=== PATIENT | female | born 1985 | race Caucasian/White ===

== ENCOUNTER → 2017-06-20 | Outpatient (REF) | payer OTHER ==
[~2017-06-20] MED LIST: NORCOTAB PO
== END ==
LOC: M LAB REF 18:27
PROVIDERS: ATTEND Obstetrics & Gynecology
DX: Z12.4 Encounter for screening for malignant neoplasm of cervix (principal)

== ENCOUNTER → 2017-08-17 | Outpatient (CLI) | payer OTHER ==
--- NOTE | 2017-08-18 14:28 | REP ---
Clinical: Pelvic pain . Technique: Transabdominal pelvic ultrasound followed by transvaginal examination for better evaluation of the endometrium and adnexa with color Doppler evaluation of the ovaries. Findings: Bladder is collapsed. Normal anteverted uterus measures 8.8 x 3.5 x 3.9 cm . The endometrial complex measures 3.1 mm thickness. No discrete uterine or endometrial abnormalities are appreciated. Right ovary is normal in appearance and vascularity without evidence for torsion. Right ovary measures 3.0 x 2.7 x 4.0 cm ; R I = 0.66. Left ovary is surgically absent. No pelvic fluid or adnexal mass lesion . Impression: 1. Evidence of prior left oophorectomy. 2. Normal uterus and right ovary. 3. No pelvic fluid or adnexal mass lesion. Signed by Sorin Gama MD 08/18/2017 02:19 P
== END ==
LOC: M RAD 12:08
PROVIDERS: ATTEND Obstetrics & Gynecology
DX: R10.2 Pelvic and perineal pain (principal)

== ENCOUNTER → 2018-02-21 | Outpatient (REF) | payer OTHER ==
[2018-02-21 22:15] LABS: CHLAMYDIA DNA AMPLIFICATION NEGATIVE (NEGATIVE); GC DNA AMPLIFICATION NEGATIVE (NEGATIVE)
== END ==
LOC: M LAB REF 17:06
DX: R10.2 Pelvic and perineal pain (principal)

== ENCOUNTER → 2018-03-02 | Outpatient (CLI) | payer OTHER | LOC: M RAD 13:30 | DX: R10.2 Pelvic and perineal pain (principal) | CPT/HCPCS: 76856 ==

== ENCOUNTER → 2020-09-04 | Outpatient (REF) | payer OTHER ==
[~2020-09-04] MED LIST changes: +HYDR-3715 PO; -NORCOTAB PO
== END ==
LOC: M LAB REF 13:05
PROVIDERS: ATTEND Physician Assistant
DX: L72.9 Follicular cyst of the skin and subcutaneous tissue, unspecified (principal)

== ENCOUNTER → 2020-09-21 | Outpatient (CLI) | payer OTHER ==
[~2020-09-21] MED LIST changes: +DOXY100T PO; +TRAZ-189 PO
== END ==
LOC: M LABSMTC 08:05
PROVIDERS: ATTEND Anesthesiology
DX: Z01.812 Encounter for preprocedural laboratory examination (principal); Z20.828 Contact with and (suspected) exposure to other viral communicable diseases

== ENCOUNTER 2020-09-26 06:01 | Day surgery (SDC) | payer OTHER ==
[~2020-09-26] VITALS: Ht 12.7 cm; Wt 3.6 kg
[~2020-09-26 06:01] MED LIST changes: +LIDOCAINE 1% MDV 20ML VIAL SQ PRN
[2020-09-26] MEDS ORDERED: LIDOCAINE 1% SDV 30ML VIAL As Ordered ONE (06:50)
[2020-09-26] MEDS ORDERED: dexameTHASONE 4 MG/ML 1ML VIAL (J1100 PER 1MG) As Ordered ONE (06:50)
[2020-09-26] MEDS ORDERED: BUPIVACAINE HCL 0.5% 30 ML VIAL As Ordered ONE (06:50)
[2020-09-26] MEDS ORDERED: ceFAZolin SOD 2 GM in IV 1 EA IV ONE (07:00)
[2020-09-26] MEDS ORDERED: LR 1,000 ML IV ONE (07:00)
[2020-09-26] MEDS ORDERED: propofoL 200 MG/20 ML VIAL As Ordered ONE (07:16)
[2020-09-26] MEDS ORDERED: LIDOCAINE 2% 100MG/5ML SDV (FOR ANES.) As Ordered ONE (07:16)
[2020-09-26] MEDS ORDERED: ONDANSETRON 4MG/2ML VIAL As Ordered ONE (07:16)
[2020-09-26] MEDS ORDERED: KETOROLAC 60MG 2ML VIAL As Ordered ONE (07:16)
[2020-09-26] MEDS ORDERED: fentaNYL 100 MCG/2 ML INJECTION (J3010) As Ordered ONE (07:17)
[2020-09-26] MEDS ORDERED: MIDAZOLAM INJ 2MG/2ML VIAL (J2250 PER 1MG) As Ordered ONE (07:17)
[2020-09-26] MEDS ORDERED: KETAMINE HCL 200 MG/20 ML VIAL As Ordered ONE (07:45)
[2020-09-26 08:46] VITALS: BP 116/68
--- NOTE | 2020-09-26 11:03 | RO ---
DATE OF OPERATION: 09/26/2020 PREOPERATIVE DIAGNOSIS: Plantar verruca. POSTOPERATIVE DIAGNOSIS: Plantar verruca. PROCEDURE: Left foot wart autoimplantation. ANESTHESIA: Monitored anesthesia care. PREOPERATIVE INJECTION: 10 cc of 1:1 mixture of 1% Lidocaine plain and 0.5% Marcaine plain. ESTIMATED BLOOD LOSS: Minimal. MATERIALS: 4-0 nylon. INJECTABLES: None. SPECIMEN: Left foot wart. COMPLICATIONS: None. CONDITION: Stable. Giselle Zavala is a 35-year-old female who presents to [facility] with chronic warts left foot. She has multiple warts which are large and not amenable for surgical excision. The decision was made to bring her for auto- implantation treatment. The patient's side and site were identified and marked in the preholding area. Consent was reviewed and obtained. The risks, complications, and alternatives to the procedure were explained to the patient in detail and all questions were answered. DESCRIPTION OF PROCEDURE: The patient was brought to the operating room and placed on the operating room table in the supine position. Monitored anesthesia care was performed by the anesthesia team. Preop injection of 10 mL of 1:1 mixture of 1% Lidocaine plain and 0.5% Marcaine plain were injected into the left foot. Foot and calf were prepped in normal sterile fashion. Using a 4 mm punch biopsy, a core of tissue of the largest wart was taken. Half of this sample was sectioned and sent for pathology. The other half was implanted through a small stab incision into the calf muscle on the medial side. This incision was repaired with 4-0 nylon. Sterile dressings were applied. The patient was brought to the PACU with vital signs stable and neurovascular status intact. She will be weightbearing as tolerated. She will follow up in the office in two days. FADY
== END 2020-09-26 08:46 | disposition home or self-care (01) ==
LOC: M SDC 06:01
PROVIDERS: ATTEND Podiatrist Foot & Ankle Surgery
DX: B07.0 Plantar wart (principal); F17.218 Nicotine dependence, cigarettes, with other nicotine-induced disorders; F43.10 Post-traumatic stress disorder, unspecified; Z88.5 Allergy status to narcotic agent; Z88.8 Allergy status to other drugs, medicaments and biological substances
CPT/HCPCS: 17110; 28899; 88305; J0690; J1100; J1885; J2250; J2405; J3010

== ENCOUNTER → 2020-12-23 | Outpatient (REF) | payer OTHER ==
[~2020-12-23] MED LIST changes: -LIDOCAINE 1% MDV 20ML VIAL SQ PRN
== END ==
LOC: M LAB REF 11:36
PROVIDERS: ATTEND Podiatrist Foot & Ankle Surgery
DX: B07.0 Plantar wart (principal)

== ENCOUNTER 2021-05-09 08:51 | Emergency (ER) | payer OTHER ==
[~2021-05-09] VITALS: Ht 172.7 cm; Wt 74.9 kg
[2021-05-09] MEDS ORDERED: ACETAMINOPHEN 500 MG TAB PO ONE (10:05)
[2021-05-09] MEDS ORDERED: LIDOCAINE 5% (LIDODERM) PATCH TD ONE (10:05)
[2021-05-09] MEDS ORDERED: LIDO5DIS41 TOP (11:08)
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
[2021-05-09 11:46] VITALS: BP 128/68
[2021-05-09] MEDS ORDERED: **NOTE PATIENT COMMENT** MISC XX SCH (21:00)
== END 2021-05-09 12:05 | disposition home or self-care (01) ==
LOC: M ED 08:51
DX: S39.012A Strain of muscle, fascia and tendon of lower back, initial encounter (principal); M54.42 Lumbago with sciatica, left side; M48.061 Spinal stenosis, lumbar region without neurogenic claudication; M51.06 Intervertebral disc disorders with myelopathy, lumbar region; V43.62XA Car passenger injured in collision with other type car in traffic accident, initial encounter; Y92.9 Unspecified place or not applicable; Y93.9 Activity, unspecified; Y99.9 Unspecified external cause status; N39.0 Urinary tract infection, site not specified; F41.9 Anxiety disorder, unspecified; F32.9 Major depressive disorder, single episode, unspecified; F17.200 Nicotine dependence, unspecified, uncomplicated; F12.10 Cannabis abuse, uncomplicated; J30.9 Allergic rhinitis, unspecified; Z88.5 Allergy status to narcotic agent

== ENCOUNTER 2021-06-06 10:41 | Emergency (ER) | payer OTHER ==
[~2021-06-06] VITALS: Ht 172.7 cm; Wt 76.1 kg
[~2021-06-06 10:41] MED LIST changes: +LIDO5DIS41 TOP
[2021-06-06] MEDS ORDERED: CLIN1GEL22 (10:54)
[2021-06-06] MEDS ORDERED: LIDOCAINE W/EPINEPHRINE 1% 20ML VIAL SC ONE (11:40)
[2021-06-06] MEDS ORDERED: AUGM875T28 PO (11:51)
[2021-06-06 11:57] VITALS: BP 115/76
== END 2021-06-06 12:04 | disposition home or self-care (01) ==
LOC: M ED 10:41
DX: L02.214 Cutaneous abscess of groin (principal); L73.2 Hidradenitis suppurativa; F41.9 Anxiety disorder, unspecified; F32.9 Major depressive disorder, single episode, unspecified; F17.200 Nicotine dependence, unspecified, uncomplicated; J30.2 Other seasonal allergic rhinitis; Z88.5 Allergy status to narcotic agent

== ENCOUNTER 2021-06-29 13:26 | Emergency (ER) | payer OTHER ==
[~2021-06-29] VITALS: Ht 172.7 cm; Wt 74.0 kg
[~2021-06-29 13:26] MED LIST changes: +AUGM875T28 PO; +CLIN1GEL22
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
--- NOTE | 2021-06-29 15:42 | REP ---
INDICATION: fall COMPARISON: None. TECHNIQUE: AP, lateral, bilateral oblique views left foot. FINDINGS: A very small corner fracture along the posterolateral aspect of the cuboid bone is identified with mild overlying soft tissue swelling. Remainder of the examination appears essentially normal. IMPRESSION: Very small corner fracture of the cuboid bone. <Electronically signed by Sorin Gama > 06/29/21 [id number]
[2021-06-29] MEDS ORDERED: ACETAMINOPHEN 500 MG TAB PO ONE (16:40)
[2021-06-29] MEDS ORDERED: IBUP80TA PO (17:05)
[2021-06-29 17:14] VITALS: BP 122/78
== END 2021-06-29 17:18 | disposition home or self-care (01) ==
LOC: M ED 13:26
DX: S93.602A Unspecified sprain of left foot, initial encounter (principal); S92.215A Nondisplaced fracture of cuboid bone of left foot, initial encounter for closed fracture; X50.1XXA Overexertion from prolonged static or awkward postures, initial encounter; Y92.099 Unspecified place in other non-institutional residence as the place of occurrence of the external cause; Y93.89 Activity, other specified; Y99.9 Unspecified external cause status; M54.9 Dorsalgia, unspecified; F41.9 Anxiety disorder, unspecified; F32.9 Major depressive disorder, single episode, unspecified; J30.89 Other allergic rhinitis; Z87.448 Personal history of other diseases of urinary system; F17.200 Nicotine dependence, unspecified, uncomplicated; F12.10 Cannabis abuse, uncomplicated; Z88.5 Allergy status to narcotic agent

== ENCOUNTER → 2021-09-17 | Outpatient (CLI) | payer OTHER ==
[~2021-09-17] MED LIST changes: +IBUP80TA PO
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
== END ==
LOC: M PLAIMG 11:02
PROVIDERS: ATTEND Orthopaedic Surgery Sports Medicine
DX: S92.212D Displaced fracture of cuboid bone of left foot, subsequent encounter for fracture with routine healing (principal)

== ENCOUNTER → 2021-12-04 | Outpatient (CLI) | payer OTHER ==
[~2021-12-04] MED LIST changes: +FLUO1CRE2 TOP
== END ==
LOC: M LABSMTC 11:29
PROVIDERS: ATTEND Anesthesiology
DX: Z01.812 Encounter for preprocedural laboratory examination (principal); Z20.822 Contact with and (suspected) exposure to COVID-19

== ENCOUNTER 2021-12-09 07:19 | Day surgery (SDC) | payer OTHER ==
[~2021-12-09] VITALS: Ht 172.7 cm; Wt 77.6 kg
[~2021-12-09 07:19] MED LIST changes: +LIDOCAINE 1% MDV 20ML VIAL SQ PRN; +LR 1,000 ML IV ONE; +ceFAZolin SOD 2 GM in IV 1 EA IV ONE
[2021-12-09] MEDS ORDERED: BUPIVACAINE HCL 0.5% 10ML VIAL As Ordered ONE (08:42)
[2021-12-09] MEDS ORDERED: dexameTHASONE 4 MG/ML 1ML VIAL (J1100 PER 1MG) As Ordered ONE (08:42)
[2021-12-09] MEDS ORDERED: LIDOCAINE 1% MDV 20ML VIAL As Ordered ONE (08:42)
[2021-12-09] MEDS ORDERED: ONDANSETRON 4MG/2ML VIAL As Ordered ONE (09:17)
[2021-12-09] MEDS ORDERED: LIDOCAINE 2% 100MG/5ML SDV (FOR ANES.) As Ordered ONE (09:17)
[2021-12-09] MEDS ORDERED: fentaNYL 100 MCG/2 ML INJECTION As Ordered ONE (09:17)
[2021-12-09] MEDS ORDERED: KETAMINE HCL 200 MG/20 ML VIAL As Ordered ONE (09:17)
[2021-12-09] MEDS ORDERED: GLYCOPYRROLATE INJ 0.2 MG/ML 2 ML VIAL As Ordered ONE (09:17)
[2021-12-09] MEDS ORDERED: MIDAZOLAM INJ 2MG/2ML VIAL (J2250 PER 1MG) As Ordered ONE (09:17)
[2021-12-09] MEDS ORDERED: propofoL 200 MG/20 ML VIAL As Ordered ONE ×2 (09:17→09:26)
[2021-12-09] MEDS ORDERED: ePHEDrine SULFATE 25 MG/5 ML(5MG/ML) SYRINGE As Ordered ONE (09:26)
[2021-12-09] MEDS ORDERED: HYDR-3713 PO (09:58)
[2021-12-09 10:20] VITALS: BP 117/59
[2021-12-09] MEDS ORDERED: LR 1,000 ML IV SCH (10:45)
[2021-12-09] MEDS ORDERED: NORCO, ANEXSIA 5/325MG TABLET (HYDROcodone/ACETAMINOPHEN) PO PRN (10:45)
[2022-01-01] MEDS ORDERED: HYDR-4517 PO (09:46)
[2022-01-01] MEDS ORDERED: IBUP-1729 PO (09:46)
== END 2021-12-09 10:35 | disposition home or self-care (01) ==
LOC: M SDC 07:19
PROVIDERS: ATTEND Podiatrist Foot & Ankle Surgery
DX: M20.12 Hallux valgus (acquired), left foot (principal); B07.0 Plantar wart; L08.9 Local infection of the skin and subcutaneous tissue, unspecified; F31.9 Bipolar disorder, unspecified; F43.10 Post-traumatic stress disorder, unspecified; F17.210 Nicotine dependence, cigarettes, uncomplicated; J30.2 Other seasonal allergic rhinitis; Z88.5 Allergy status to narcotic agent; Z79.899 Other long term (current) drug therapy
CPT/HCPCS: 17110; 28296; 88300; C1713; J0690; J1100; J2250; J2405; J3010

== ENCOUNTER → 2022-01-01 | Outpatient (CLI) | payer OTHER ==
[~2022-01-01] MED LIST changes: +HYDR-3713 PO; +HYDR-4517 PO; +IBUP-1729 PO; -LIDOCAINE 1% MDV 20ML VIAL SQ PRN; -LR 1,000 ML IV ONE; -ceFAZolin SOD 2 GM in IV 1 EA IV ONE
== END ==
LOC: M LABSMTC 09:07
PROVIDERS: ATTEND Anesthesiology
DX: Z01.812 Encounter for preprocedural laboratory examination (principal); Z20.822 Contact with and (suspected) exposure to COVID-19

== ENCOUNTER 2022-01-06 08:58 | Day surgery (SDC) | payer OTHER ==
[~2022-01-06] VITALS: Ht 172.7 cm; Wt 77.1 kg
[~2022-01-06 08:58] MED LIST changes: +LR 1,000 ML IV ONE
[2022-01-06] MEDS ORDERED: fentaNYL 100 MCG/2 ML INJECTION As Ordered ONE (10:20)
[2022-01-06] MEDS ORDERED: MIDAZOLAM INJ 2MG/2ML VIAL (J2250 PER 1MG) As Ordered ONE (10:20)
[2022-01-06] MEDS ORDERED: propofoL 200 MG/20 ML VIAL As Ordered ONE ×2 (10:21→10:49)
[2022-01-06] MEDS ORDERED: LIDOCAINE 2% 100MG/5ML SDV (FOR ANES.) As Ordered ONE (10:21)
[2022-01-06] MEDS ORDERED: LIDOCAINE 1% MDV 20ML VIAL As Ordered ONE (10:24)
[2022-01-06] MEDS ORDERED: SILVER NITRATE APPLICATOR As Ordered ONE (10:24)
[2022-01-06] MEDS ORDERED: BUPIVACAINE HCL 0.5% 10ML VIAL As Ordered ONE (10:25)
[2022-01-06 11:35] VITALS: BP 120/90
== END 2022-01-06 11:52 | disposition home or self-care (01) ==
LOC: M SDC 08:58
PROVIDERS: ATTEND Podiatrist Foot & Ankle Surgery
DX: B07.0 Plantar wart (principal); G43.909 Migraine, unspecified, not intractable, without status migrainosus; L73.2 Hidradenitis suppurativa; F31.9 Bipolar disorder, unspecified; F43.10 Post-traumatic stress disorder, unspecified; Z88.5 Allergy status to narcotic agent; Z79.899 Other long term (current) drug therapy; F17.218 Nicotine dependence, cigarettes, with other nicotine-induced disorders; F41.9 Anxiety disorder, unspecified
CPT/HCPCS: 17110; J2250; J3010

== ENCOUNTER 2022-04-17 12:42 | Emergency (ER) | payer OTHER ==
[~2022-04-17] VITALS: Ht 172.7 cm; Wt 77.3 kg
[~2022-04-17 12:42] MED LIST changes: -LR 1,000 ML IV ONE
[2022-04-17] MEDS ORDERED: LIDOCAINE W/EPINEPHRINE 1% 20ML VIAL SC ONE (13:35)
[2022-04-17] MEDS ORDERED: VALT500T PO (14:22)
[2022-04-17 14:31] VITALS: BP 105/67
== END 2022-04-17 14:33 | disposition home or self-care (01) ==
LOC: M ED 12:42
DX: L02.214 Cutaneous abscess of groin (principal); L73.2 Hidradenitis suppurativa; F17.200 Nicotine dependence, unspecified, uncomplicated; Z88.6 Allergy status to analgesic agent

== ENCOUNTER → 2022-04-22 | Outpatient (CLI) | payer OTHER ==
[~2022-04-22] MED LIST changes: +VALT500T PO
== END ==
LOC: M PLALAB 15:05
PROVIDERS: ATTEND Podiatrist Foot & Ankle Surgery
DX: E55.9 Vitamin D deficiency, unspecified (principal)

== ENCOUNTER → 2022-05-24 | Outpatient (REF) | payer OTHER | LOC: M LAB REF 16:05 | PROVIDERS: ATTEND Physician Assistant Medical | DX: R09.82 Postnasal drip (principal) ==

== ENCOUNTER 2022-09-12 20:02 | Emergency (ER) | payer OTHER ==
[~2022-09-12] VITALS: Ht 172.7 cm; Wt 71.8 kg
[2022-09-12] MEDS ORDERED: KETOROLAC 60MG 2ML VIAL IM ONE (22:05)
[2022-09-12] MEDS ORDERED: BENZONATATE 100MG CAPSULE PO ONE (22:05)
[2022-09-12] MEDS ORDERED: GI COCKTAIL 50ML BTL(HYOSCYAMINE/MAALOX/LIDOCAINE VISCOUS)(1:3:1) PO ONE (22:05)
[2022-09-12] MEDS: COMBIVENT RESPIMAT 100-20MCG INHALER 4GM INH SCH ×3 (22:14→22:26)
[2022-09-13] MEDS ORDERED: BENZ200C70 PO (00:15)
[2022-09-13] MEDS ORDERED: PSEU120T19 PO (00:15)
[2022-09-13] MEDS ORDERED: LIDO2SOL17 PO (00:15)
[2022-09-13] MEDS ORDERED: LIDOCAINE VISCOUS 2% SOLN 15ML UDC SS STA (00:18)
[2022-09-13 00:30] VITALS: BP 116/82
== END 2022-09-13 00:31 | disposition home or self-care (01) ==
LOC: M ED 20:02
DX: J02.9 Acute pharyngitis, unspecified (principal); R05.9 Cough, unspecified; R09.81 Nasal congestion; F17.200 Nicotine dependence, unspecified, uncomplicated
CPT/HCPCS: 71046; 87486; 87581; 87633; 87798; 87880; 94640; 96372; 99283; J1885

== ENCOUNTER → 2022-10-06 | Outpatient (REF) | payer OTHER ==
[~2022-10-06] MED LIST changes: +BENZ200C70 PO; +LIDO2SOL17 PO; +PSEU120T19 PO
== END ==
LOC: M LAB REF 18:09
PROVIDERS: ATTEND Nurse Practitioner Family
DX: J02.9 Acute pharyngitis, unspecified (principal)

== ENCOUNTER 2022-11-09 14:11 | Emergency (ER) | payer OTHER ==
[~2022-11-09] VITALS: Ht 172.7 cm; Wt 73.2 kg
[2022-11-09 19:14] VITALS: BP 124/74
[2022-11-10] MEDS ORDERED: HYDR-3363 PO (08:34)
[2022-11-10] MEDS ORDERED: CITA20TA6 PO (08:34)
[2022-11-10] MEDS ORDERED: LORA-243 PO (08:34)
[2022-11-10] MEDS ORDERED: KLON0.5T PO (08:34)
== END 2022-11-09 19:16 | disposition home or self-care (01) ==
LOC: M ED 14:11
DX: S60.211A Contusion of right wrist, initial encounter (principal); S63.501A Unspecified sprain of right wrist, initial encounter; W23.0XXA Caught, crushed, jammed, or pinched between moving objects, initial encounter; Y92.019 Unspecified place in single-family (private) house as the place of occurrence of the external cause

== ENCOUNTER → 2022-11-21 | Outpatient (CLI) | payer OTHER ==
[~2022-11-21] MED LIST changes: +CITA20TA6 PO; +HYDR-3363 PO; +KLON0.5T PO; +LORA-243 PO
== END ==
LOC: M LABSMTC 09:14
PROVIDERS: ATTEND Anesthesiology
DX: Z01.812 Encounter for preprocedural laboratory examination (principal); Z11.52 Encounter for screening for COVID-19

== ENCOUNTER 2022-11-24 06:08 | Day surgery (SDC) | payer OTHER ==
[~2022-11-24] VITALS: Ht 172.7 cm; Wt 75.2 kg
[~2022-11-24 06:08] MED LIST changes: +ceFAZolin SOD 2 GM in IV 1 EA IV ONE
[2022-11-24] MEDS ORDERED: LR 1,000 ML IV SCH (06:15)
[2022-11-24] MEDS ORDERED: BUPIVACAINE HCL 0.25% 10ML VIAL As Ordered ONE (07:08)
[2022-11-24] MEDS ORDERED: LIDOCAINE 1% MDV 20ML VIAL As Ordered ONE (07:08)
[2022-11-24] MEDS ORDERED: MIDAZOLAM INJ 2MG/2ML VIAL As Ordered ONE (07:09)
[2022-11-24] MEDS ORDERED: fentaNYL 100 MCG/2 ML INJECTION As Ordered ONE (07:09)
[2022-11-24] MEDS ORDERED: KETOROLAC 60MG 2ML VIAL As Ordered ONE (07:09)
[2022-11-24] MEDS ORDERED: LIDOCAINE 2% 100MG/5ML SDV (FOR ANES.) As Ordered ONE (07:09)
[2022-11-24] MEDS ORDERED: propofoL 200 MG/20 ML VIAL As Ordered ONE (07:09)
[2022-11-24 09:00] VITALS: BP 106/64
== END 2022-11-24 09:10 | disposition home or self-care (01) ==
LOC: M SDC 06:08
PROVIDERS: ATTEND Podiatrist Foot & Ankle Surgery
DX: T84.84XA Pain due to internal orthopedic prosthetic devices, implants and grafts, initial encounter (principal); B07.0 Plantar wart; Z88.5 Allergy status to narcotic agent
CPT/HCPCS: 17110; 20680; 76000; 88304; J1100

== ENCOUNTER → 2023-02-15 | Outpatient (REF) | payer OTHER ==
[~2023-02-15] MED LIST changes: +LIDO15SO PO; -LIDO2SOL17 PO; -ceFAZolin SOD 2 GM in IV 1 EA IV ONE
[2023-02-15 16:39] LABS: BASO % 0.3 % (0.0-1.0); EOS # 0.1 10^3/uL (0.0-0.5); EOS % 0.6 % (0.0-3.0); HEMATOCRIT 43.9 % (36.0-47.0); HEMOGLOBIN 14.2 g/dl (12.0-15.5); LYMPH # 1.2 10^3/uL (1.5-5.0); LYMPH % 9.6 % (24.0-44.0); MEAN CORPUSCULAR HEMOGLOBIN 30.5 pg (27.0-33.0); MEAN CORPUSCULAR HGB CONC 32.3 g/dl (32.0-36.5); MEAN CORPUSCULAR VOLUME 94.2 fl (80.0-96.0); MONO % 8.2 % (2.0-8.0); PLATELET COUNT, AUTOMATED 210 10^3/uL (150-450); RED BLOOD COUNT 4.66 10^6/uL (4.00-5.40); WHITE BLOOD COUNT 12.4 10^3/uL (4.0-10.0)
[2023-02-15 17:08] LABS: ALBUMIN 3.8 G/DL (3.2-5.2); ALKALINE PHOSPHATASE 72 U/L (46-116); ALT/SGPT < 9 U/L (7.0-40); AST/SGOT 10 U/L (<34); BILIRUBIN,TOTAL 0.4 MG/DL (0.3-1.2); BLOOD UREA NITROGEN 14 MG/DL (9-23); CALCIUM LEVEL 8.8 MG/DL (8.5-10.1); CARBON DIOXIDE LEVEL 24 MMOL/L (20-31); CHLORIDE LEVEL 107 MMOL/L (98-107); CHOLESTEROL LEVEL 133 MG/DL (<200); GLOMERULAR FILTRATION RATE > 60.0 (>60); GLUCOSE, FASTING 81 MG/DL (60-100); HDL CHOLESTEROL 60.2 MG/DL (>40); NON-HDL-C 72.8 MG/DL; POTASSIUM SERUM 4.7 MMOL/L (3.5-5.1); SODIUM LEVEL 138 MMOL/L (136-145); TOTAL PROTEIN 6.4 G/DL (5.7-8.2); TRIGLYCERIDES LEVEL 49 MG/DL (<150)
[2023-02-15 17:09] LABS: THYROID STIMULATING HORMONE 2.399 uIU/ML (0.55-4.78)
[2023-02-15 17:10] LABS: TOTAL 25(OH) VITAMIN D 24.7 NG/ML (20.0-100.0)
== END ==
LOC: M LAB REF 16:22
PROVIDERS: ATTEND Nurse Practitioner Family
DX: Z13.228 Encounter for screening for other metabolic disorders (principal)

== ENCOUNTER → 2023-10-11 | Outpatient (REF) | payer OTHER | LOC: M LAB REF 12:55 | PROVIDERS: ATTEND Nurse Practitioner Family | DX: B34.9 Viral infection, unspecified (principal) ==

== ENCOUNTER → 2023-11-08 | Outpatient (REF) | payer OTHER | LOC: M LAB REF 16:24 | PROVIDERS: ATTEND Physician Assistant | DX: B34.9 Viral infection, unspecified (principal) ==

== ENCOUNTER → 2023-12-29 | Outpatient (REF) | payer OTHER ==
[~2023-12-29] MED LIST changes: -KLON0.5T PO; +KLON0.5T8 PO
[2023-12-29 14:38] LABS: BASO % 0.4 % (0.0-1.0); EOS # 0.1 10^3/uL (0.0-0.5); HEMATOCRIT 45.7 % (36.0-47.0); HEMOGLOBIN 14.8 g/dl (12.0-15.5); LYMPH # 1.8 10^3/uL (1.5-5.0); LYMPH % 23.8 % (24.0-44.0); MEAN CORPUSCULAR HGB CONC 32.4 g/dl (32.0-36.5); MEAN CORPUSCULAR VOLUME 92.5 fl (80.0-96.0); MONO # 0.6 10^3/uL (0.0-0.8); MONO % 8.3 % (2.0-8.0); NEUTROPHILS # 5.1 10^3/uL (1.5-8.5); NEUTROPHILS % 66.4 % (36.0-66.0); PLATELET COUNT, AUTOMATED 220 10^3/uL (150-450); RED BLOOD COUNT 4.94 10^6/uL (4.00-5.40); WHITE BLOOD COUNT 7.7 10^3/uL (4.0-10.0)
[2023-12-29 15:04] LABS: HEMOGLOBIN A1c 4.9 % (4.0-6.0); TOTAL 25(OH) VITAMIN D 23.4 NG/ML (20.0-100.0)
[2023-12-29 15:05] LABS: ALBUMIN 4.2 G/DL (3.2-5.2); ALKALINE PHOSPHATASE 68 U/L (46-116); ALT/SGPT 15 U/L (7.0-40); AST/SGOT 11 U/L (<34); BILIRUBIN,TOTAL 0.9 MG/DL (0.3-1.2); BLOOD UREA NITROGEN 10 MG/DL (9-23); CARBON DIOXIDE LEVEL 28 MMOL/L (20-31); CHLORIDE LEVEL 111 MMOL/L (98-107); CHOLESTEROL LEVEL 157 MG/DL (<200); CHOLESTEROL RISK RATIO 2.71 (<5); CREATININE FOR GFR 0.79 MG/DL (0.55-1.30); GLOMERULAR FILTRATION RATE > 60.0 (>60); GLUCOSE, FASTING 89 MG/DL (60-100); HDL CHOLESTEROL 57.9 MG/DL (>40); LDL CHOLESTEROL 86.3 MG/DL (<100); NON-HDL-C 99.1 MG/DL; POTASSIUM SERUM 4.5 MMOL/L (3.5-5.1); SODIUM LEVEL 139 MMOL/L (136-145); THYROID STIMULATING HORMONE 2.431 uIU/ML (0.55-4.78); TRIGLYCERIDES LEVEL 64 MG/DL (<150)
== END ==
LOC: M LAB REF 12:42
PROVIDERS: ATTEND Nurse Practitioner Family
DX: E66.3 Overweight (principal); E55.9 Vitamin D deficiency, unspecified

== ENCOUNTER → 2024-08-29 | Outpatient (REF) ==
[~2024-08-29] MED LIST changes: -LIDO15SO PO; +LIDO15SO8 PO
[2024-08-30 11:52] LABS: HERPES ZOSTER, VARICELLA IgG 8.43 S/CO (>=1.00)
== END ==
LOC: M LAB 12:05
PROVIDERS: ATTEND Family Medicine
DX: Z01.84 Encounter for antibody response examination (principal)

== ENCOUNTER → 2024-10-06 | Outpatient (REF) ==
[2024-10-06 14:05] LABS: RSV AMPLIFICATION NEGATIVE (NEGATIVE)
== END ==
LOC: M EMP 09:58
PROVIDERS: ATTEND Family Medicine
DX: Z11.52 Encounter for screening for COVID-19 (principal)

== ENCOUNTER 2024-11-18 15:41 | Emergency (ER) | payer OTHER, SELFPAY ==
[2024-11-18 15:47] VITALS: BP 142/76; TEMP 97.7; O2SAT 99
[2024-11-18] MEDS ORDERED: RITA20TA PO (15:50)
[2024-11-18 17:00] LABS: BASO % 0.4 % (0.0-1.0); EOS # 0.1 10^3/uL (0.0-0.5); EOS % 0.7 % (0.0-3.0); HEMATOCRIT 40.5 % (36.0-47.0); HEMOGLOBIN 13.7 g/dl (12.0-15.5); LYMPH % 33.2 % (24.0-44.0); MEAN CORPUSCULAR HEMOGLOBIN 30.2 pg (27.0-33.0); MEAN CORPUSCULAR HGB CONC 33.8 g/dl (32.0-36.5); MEAN CORPUSCULAR VOLUME 89.4 fl (80.0-96.0); MONO # 0.7 10^3/uL (0.0-0.8); MONO % 8.2 % (2.0-8.0); NEUTROPHILS # 5.1 10^3/uL (1.5-8.5); NEUTROPHILS % 57.4 % (36.0-66.0); PLATELET COUNT, AUTOMATED 223 10^3/uL (150-450); RED BLOOD COUNT 4.53 10^6/uL (4.00-5.40)
[2024-11-18 17:22] LABS: BLOOD UREA NITROGEN 13 MG/DL (9-23); CALCIUM LEVEL 9.2 MG/DL (8.5-10.1); CARBON DIOXIDE LEVEL 27 MMOL/L (20-31); CHLORIDE LEVEL 108 MMOL/L (98-107); CREATININE FOR GFR 0.77 MG/DL (0.55-1.30); GLOMERULAR FILTRATION RATE > 60.0 (>60); GLUCOSE, FASTING 91 MG/DL (60-100); MAGNESIUM LEVEL 2.1 MG/DL (1.8-2.4); POTASSIUM SERUM 3.9 MMOL/L (3.5-5.1); SODIUM LEVEL 142 MMOL/L (136-145)
[2024-11-18 17:26] LABS: HCG, SERUM QUALITATIVE NEGATIVE (NEGATIVE)
== END 2024-11-18 19:07 | disposition left against medical advice (07) ==
LOC: M ED 15:41
DX: Z53.21 Procedure and treatment not carried out due to patient leaving prior to being seen by health care provider (principal)

== ENCOUNTER → 2025-07-30 | Outpatient (CLI) | payer OTHER ==
[~2025-07-30] MED LIST changes: +LIDO1ADH93 TOP; -LIDO5DIS41 TOP; +RITA20TA PO
== END ==
LOC: M RAD 11:45
PROVIDERS: ATTEND Physician Assistant
DX: M25.532 Pain in left wrist (principal)

== ENCOUNTER → 2025-08-13 | Outpatient (REF) ==
[2025-08-13 10:14] LABS: SOFIA COVID ANTIGEN NEGATIVE (NEGATIVE)
== END ==
LOC: M EMP 09:50
PROVIDERS: ATTEND Family Medicine
DX: Z11.52 Encounter for screening for COVID-19 (principal)